=== PATIENT | male | born 1955 | race Caucasian/White ===

== ENCOUNTER 2017-08-01 20:24 | Emergency (ER) | payer BC ==
[2017-08-01] MEDS ORDERED: IOPAMIDOL-300 100 ML VIAL IVP ONE (20:25)
[2017-08-01 20:51] LABS: BASOPHILS % (AUTO) 0.4 %; EOSINOPHILS # (AUTO) 0.1 10^3/uL (0.0-0.7); EOSINOPHILS % (AUTO) 1.4 %; HGB - HEMOGLOBIN 15.2 g/dL (14.0-18.0); LYMPHOCYTES # (AUTO) 2.3 10^3/uL (1.5-3.5); LYMPHOCYTES % (AUTO) 23.4 %; MEAN CORPUSCULAR HEMOGLOBIN 30.7 pg (27.0-31.0); MEAN CORPUSCULAR HGB CONC 32.7 g/dL (32.0-36.0); MEAN CORPUSCULAR VOLUME 93.9 fL (80.0-94.0); MEAN PLATELET VOLUME 8.8 fL (7.4-11.4); MONOCYTES # (AUTO) 0.9 10^3/uL (0.0-1.0); MONOCYTES % (AUTO) 9.5 %; NEUTROPHILS # (AUTO) 6.4 10^3/uL (1.5-6.6); NEUTROPHILS % (AUTO) 65.3 %; PLT - PLATELET COUNT 234 10^3/uL (130-450); RED BLOOD COUNT 4.95 10^6/uL (4.70-6.10); WHITE BLOOD COUNT 9.8 x10^3/uL (4.8-10.8)
[2017-08-01 21:11] LABS: ALBUMIN 4.4 g/dL (3.2-5.5); ALBUMIN/GLOBULIN RATIO 1.4 (1.0-2.2); BILIRUBIN,TOTAL 0.9 mg/dL (0.2-1.0); CALCIUM 9.6 mg/dL (8.5-10.3); CREATININE 0.9 mg/dL (0.6-1.2); TOTAL PROTEIN 7.5 g/dL (6.7-8.2)
--- NOTE | 2017-08-01 21:22 | ED Physician Documentation ---
History of Present Illness - Stated complaint Stated Complaint: SHOULDER/BACK PAIN - Chief complaint Chief Complaint: Cardiac - History obtained from History obtained from: Patient - History of Present Illness Timing: Yesterday Pain level max: 9 Pain level now: 7 Quality: aching, dull - Additonal information Additional information: States R shoulder pain since yesterday. Started when watching TV. States moved to R shoulder to the R lower ribs. States sharp. constant. Better with sitting up or standing. Worse with deep breathing. States 9/10 pain. Review of Systems Ten Systems: 10 systems reviewed and negative Constitutional: denies: Fever, Chills Ears: denies: Ear pain GI: denies: Vomiting, Diarrhea : denies: Dysuria Skin: denies: Rash Musculoskeletal: denies: Neck pain, Back pain PD PAST MEDICAL HISTORY - Past Medical History Past Medical History: Yes Cardiovascular: Hypertension, High cholesterol, Atrial fibrillation - Past Surgical History Past Surgical History: Yes - Present Medications Home Medications: Ambulatory Orders Medication Instructions Recorded Confirmed Hydrocodone/Acetaminophen 1 - 2 each PO Q6H PRN #14 tablet 08/02/17 [Hydrocodon-Acetaminophen 5-325] Rivaroxaban [Xarelto] 15 mg PO BID #42 tablet 08/02/17 - Allergies Allergies/Adverse Reactions: Allergies Allergy/AdvReac Type Severity Reaction Status Date / Time naproxen [From Naprosyn] AdvReac Unknown Verified 08/01/17 21:27 - Social History Does the pt smoke?: No Smoking Status: Never smoker Does the pt drink ETOH?: No Does the pt have substance abuse?: No - Immunizations Immunizations are current?: No PD ED PE NORMAL - Vitals Vital signs reviewed: Yes - General General: Alert and oriented X 3, Other (appears in pain) - HEENT HEENT: Moist mucous membranes - Neck Neck: Supple, no meningeal sign - Cardiac Cardiac: RRR, Strong equal pulses - Respiratory Respiratory: No respiratory distress, Clear bilaterally - Abdomen Abdomen: Soft, Non tender, Non distended - Back Back: No CVA TTP, No spinal TTP - Derm Derm: Warm and dry - Extremities Extremities: No edema, No calf tenderness / cord - Neuro Neuro: Alert and oriented X 3 - Psych Psych: Normal mood, Normal affect Results - Vitals Vitals: Vital Signs - 24 hr 08/01/17 08/01/17 08/01/17 20:28 21:37 22:38 Temperature 36.0 C L Heart Rate 70 80 80 Respiratory 16 16 16 Rate Blood Pressure 165/92 H 172/96 H 125/82 H O2 Saturation 99 95 97 08/02/17 00:46 Temperature Heart Rate 81 Respiratory 16 Rate Blood Pressure 155/97 H O2 Saturation 95 Oxygen O2 Source Room air - EKG (time done) 2038 Rate: Rate (enter#) (67) Rhythm: NSR [place]: Normal Intervals: Normal [place] QRS: Normal Ischemia: Normal ST segments - Labs Labs: Laboratory Tests 08/01/17 08/01/17 08/01/17 20:35 20:35 20:35 WBC 9.8 RBC 4.95 Hgb 15.2 Hct 46.5 MCV 93.9 MCH 30.7 MCHC 32.7 RDW 13.0 Plt Count 234 MPV 8.8 Neut # 6.4 Lymph # 2.3 [place] # 0.9 Eos # 0.1 Baso # 0.0 Absolute Nucleated RBC 0.00 Nucleated RBC % 0.0 Sodium 136 Potassium 4.0 Chloride 101 Carbon Dioxide 28 Anion Gap 7.0 BUN 16 Creatinine 0.9 Estimated GFR (MDRD) 86 L Glucose 84 Calcium 9.6 Total Bilirubin 0.9 AST 22 ALT 20 Alkaline Phosphatase 53 Troponin I < 0.04 Total Protein 7.5 Albumin 4.4 Globulin 3.1 Albumin/Globulin Ratio 1.4 Lipase 26 Urine Color Urine Clarity Urine pH Ur Specific [place] Urine Protein Urine Glucose (UA) Urine Ketones Urine Occult Blood Urine Nitrite Urine Bilirubin Urine Urobilinogen Ur Leukocyte Esterase Ur Microscopic Review Urine Culture Comments 08/01/17 21:35 WBC RBC Hgb Hct MCV MCH MCHC RDW Plt Count MPV Neut # Lymph # [place] # Eos # Baso # Absolute Nucleated RBC Nucleated RBC % Sodium Potassium Chloride Carbon Dioxide Anion Gap BUN Creatinine Estimated GFR (MDRD) Glucose Calcium Total Bilirubin AST ALT Alkaline Phosphatase Troponin I Total Protein Albumin Globulin Albumin/Globulin Ratio Lipase Urine Color YELLOW Urine Clarity CLEAR Urine pH 5.5 Ur Specific [place] <=1.005 Urine Protein NEGATIVE Urine Glucose (UA) NEGATIVE Urine Ketones NEGATIVE Urine Occult Blood NEGATIVE Urine Nitrite NEGATIVE Urine Bilirubin NEGATIVE Urine Urobilinogen 0.2 (NORMAL) Ur Leukocyte Esterase NEGATIVE Ur Microscopic Review NOT INDICATED Urine Culture Comments NOT INDICATED - Rads (name of study) cxr Radiology: Prelim report reviewed, EMP read contemporaneously, See rad report ( normal) CT abd/pelvis Radiology: Prelim report reviewed, EMP read contemporaneously, See rad report ( Ground glass infiltrate in the posterior right lower lobe with trace adjacent effusion, likely the source of right flank/right upper quadrant pain. Differential considerations include infection or infarct. 2. No acute process identified within the abdomen or pelvis. 3. Colonic diverticulosis without CT evidence for acute diverticulitis. ) CTPA Radiology: Prelim report reviewed, EMP read contemporaneously, See rad report ( Subsegmental right middle and lower lobe pulmonary emboli. Right lower lobe opacities likely secondary to atelectasis and small pulmonary infarct.) PD MEDICAL DECISION MAKING - ED course Complexity details: reviewed results, re-evaluated patient, considered differential, d/w patient, d/w family ED course: Patient is a 61-year-old male with a history of paroxysmal atrial fibrillation who presents to the emergency department with right shoulder pain and right side pain since yesterday. He was given pain medication in the emergency department and the pain localized to the right upper quadrant/right flank. Consideration for biliary colic versus ureteral stone versus pulmonary embolism. CT abdomen pelvis did not show any acute abnormalities other than a groundglass infiltrate in the posterior right lower lobe. Therefore a CT pulmonary angiogram was performed which did reveal subsegmental pulmonary emboli in the right middle and lower lobes. No right heart strain. No hypoxia. Pain well controlled. No evidence of hemodynamic instability. PESI score is 72, which places him in category II, low risk. I spent a long time in conversation with the patient and his . We discussed admission for pain control, heparin drip and start anticoagulation, he declines this at this time and given his clinical status, I think this is reasonable. His will be at home with him. We also discussed Lovenox plus warfarin versus Xarelto. He is chosen to go with Xarelto at this time. I also think that this is reasonable and we did discuss the risks and benefits of each including bleeding and reversal. Patient states that he will follow-up with his PCP at [facility] for further care this week. 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 Patient and family counseled regarding signs and symptoms for which I believe and urgent re-evaluation would be necessary. Patient with good understanding of and agreement to plan and is comfortable going home at this time This document was made in part using voice recognition software. While efforts are made to proofread this document, sound alike and grammatical errors may occur. Departure - Departure Disposition: 01 Home, Self Care Clinical Impression: Pulmonary embolism and infarction Condition: Good Instructions: Embolism Pulmonary Dc Follow-Up: DALLIN DOS SANTOS [Physician No Access] - Within 1 week Prescriptions: Hydrocodone/Acetaminophen [Hydrocodon-Acetaminophen 5-325] 1 - 2 each PO Q6H PRN #14 tablet PRN Reason: pain Rivaroxaban [Xarelto] 15 mg PO BID #42 tablet Comments: You have a subsegmental pulmonary embolism on the right side of your lungs. We will start you on Xarelto as we discussed, 15 mg by mouth twice a day for 21 days. After the 21 days your doctor will need to prescribe you 20 mg by mouth daily for the next 6 months. At that point they can reassess you to see if you need to stay on the Xarelto or not. Your doctor will likely want to perform an echocardiogram on you. Return if you worsen. You do need to be seen by your doctor in the next 7 days. Please call his office on Thursday for follow-up. Discharge Date/Time: 08/02/17 00:46
[2017-08-01] MEDS ORDERED: HYDROmorphone 2 MG/ML VIAL IVP STA (21:23)
[2017-08-01] MEDS ORDERED: ONDANSETRON 4 MG/2 ML VIAL IVP STA (21:23)
--- NOTE | 2017-08-01 21:30 | XRAY Preliminary Report ---
Exam: XR CHEST 1 VIEW X-RAY IMPRESSION: Negative chest. [facility] SITE ID: [id number]
--- NOTE | 2017-08-01 21:30 | XRAY Report ---
EXAM: CHEST RADIOGRAPHY EXAM DATE: 08/01/2017 09:24 PM. CLINICAL HISTORY: Chest pain. COMPARISON: None. TECHNIQUE: 1 view. FINDINGS: Lungs/Pleura: No focal opacities evident. No pleural effusion. No pneumothorax. Mediastinum: Heart size is normal. Very mild aortic arch atherosclerotic calcification. Other: None. IMPRESSION: Negative chest. [facility] Referring Provider Line: [phone] SITE ID: [id number]
[2017-08-01] MEDS ORDERED: ONDANSETRON 4 MG/2 ML VIAL ONE (21:36)
[2017-08-01 21:39] LABS: BILIRUBIN,URINE NEGATIVE (NEGATIVE); GLUCOSE, URINE (UA) NEGATIVE (NEGATIVE); KETONES,URINE (UA) NEGATIVE (NEGATIVE); LEUKOCYTE ESTERASE, URINE NEGATIVE (NEGATIVE); NITRITE,URINE NEGATIVE (NEGATIVE); OCCULT BLOOD,URINE NEGATIVE (NEGATIVE); PH,URINE 5.5 PH (5.0-7.5); PROTEIN,URINE NEGATIVE (NEGATIVE); UROBILINOGEN,URINE 0.2 (NORMAL) E.U./dL (NORMAL)
[2017-08-01 21:40] LABS: CLARITY,URINE CLEAR (CLEAR)
[2017-08-01] MEDS ORDERED: IOPAMIDOL-300 100 ML VIAL ONE ×2 (22:23→23:24)
[2017-08-01] MEDS: IOPAMIDOL-300 100 ML VIAL IVP ONE ×3 (22:32→23:46)
--- NOTE | 2017-08-01 23:03 | CT Report ---
EXAM: CT ABDOMEN AND PELVIS EXAM DATE: 08/01/2017 10:40 PM. CLINICAL HISTORY: Right flank and right upper quadrant pain COMPARISONS: None. TECHNIQUE: Routine helical CT imaging was performed through the abdomen and pelvis. IV contrast: 100M L ISOVUE 300. Enteric contrast: No. Reconstructions: Coronal and sagittal. In accordance with CT protocol optimization, one or more of the following dose reduction techniques w ere utilized for this exam: automated exposure control, adjustment of mA and/or KV based on patient s ize, or use of iterative reconstructive technique. FINDINGS: Lung Bases: Groundglass infiltrate in the posterior right lower lobe with trace adjacent effusion. Liver: Normal. No focal hepatic lesion. Gallbladder/Bile Ducts: Unremarkable. No visualized stones or biliary ductal dilatation. Spleen: Normal. Pancreas: Normal. Adrenal Glands: Normal. Kidneys and Ureters: Normal. No stones, hydronephrosis, or hydroureter. Peritoneal Cavity/Bowel: Colonic diverticulosis. No evidence for bowel obstruction or acute inflammat ory process. The appendix is normal. No free fluid, pneumoperitoneum, or adenopathy. Pelvic Organs: Tiny dystrophic calcifications within the prostate gland. The bladder and visualized p elvic organs are otherwise within normal limits. Vasculature: Mild to moderate atherosclerotic calcifications within the aorta and iliac arteries. No aneurysm or other significant abnormality. Bones: Chronic bilateral L5 pars defects with associated severe disk degeneration and grade 1 anterol isthesis at L5-S1 mild right convex curvature centered at L4-L5. Variant anatomy of the bilateral pro ximal femurs with diminished cutback along the lateral femoral head/neck junctions, which can be asso ciated with cam-type femoral acetabular impingement. Mild osteoarthritis at the hips. Other: None. IMPRESSION: 1. Ground glass infiltrate in the posterior right lower lobe with trace adjacent effusion, likely the source of right flank/right upper quadrant pain. Differential considerations include infection or in farct. 2. No acute process identified within the abdomen or pelvis. 3. Colonic diverticulosis without CT evidence for acute diverticulitis. [facility] Referring Provider Line: [phone] SITE ID: [id number]
[2017-08-01] MEDS ORDERED: SODIUM CHLORIDE 0.9% 1,000 ML IV ONE (23:04)
--- NOTE | 2017-08-02 00:09 | CT Preliminary Report ---
Exam: CT CHEST ANGIO (PE) IMPRESSION: 1. Subsegmental right middle and lower lobe pulmonary emboli. 2. Right lower lobe opacities likely secondary to atelectasis and small pulmonary infarct. [facility] The above findings were discussed with Johnson De La Cruz by Dr. Dami Stallings at 00:08 hrs on 07/08 09/23. SITE ID: [id number]
[2017-08-02] MEDS ORDERED: RIVAROXABAN 15 MG TABLET PO STA (00:26)
[2017-08-02] MEDS ORDERED: HYDROcod/ACETAM 5/325 MG TABLET PO STA (00:26)
[2017-08-02 00:47] VITALS: BP 155/97
--- NOTE | 2017-08-02 00:58 | CT Report ---
EXAM: CT ANGIOGRAM CHEST EXAM DATE: 08/01/2017 11:50 PM. CLINICAL HISTORY: Right lower lobe infarct versus infection. COMPARISON: 08/01/[address] TECHNIQUE: Routine helical imaging was performed through the chest in the pulmonary arterial phase. I V Contrast: 80ML ISOVUE 300. Reconstructions: Coronal 3-D MIP reconstructions.Sagittal and coronal. In accordance with CT protocol optimization, one or more of the following dose reduction techniques w ere utilized for this exam: automated exposure control, adjustment of mA and/or KV based on patient s ize, or use of iterative reconstructive technique. FINDINGS: Pulmonary Arteries: Diagnostic quality: Adequate through the segmental arteries. There are filling defects within subsegm ental pulmonary artery branches of the right lower lobe. There is a small embolism in one of the righ t middle lobe segmental branches. No left lung or central emboli seen. RV/LV is within normal limits. There is no interventricular septal bowing. There is no reflux of cont rast material in the IVC. Lungs/Pleura: There are bilateral lower lobe hypoventilatory changes. Areas of dense consolidation at the right lung base may represent pulmonary infarct. No pneumothorax. Mediastinum: Normal. No cardiac enlargement or adenopathy. Thoracic Aorta: Unremarkable. Upper Abdomen: Unremarkable. Other: None. IMPRESSION: 1. Subsegmental right middle and lower lobe pulmonary emboli. 2. Right lower lobe opacities likely secondary to atelectasis and small pulmonary infarct. [facility] The above findings were discussed with Johnson De La Cruz by Dr. Dami Stallings at 00:08 hrs on 07/08 09/23. Referring Provider Line: [phone] SITE ID: [id number]
== END 2017-08-02 00:46 | disposition home or self-care (01) ==
LOC: ED 20:24
DX: I26.99 Other pulmonary embolism without acute cor pulmonale (principal); I10 Essential (primary) hypertension; E78.00 Pure hypercholesterolemia, unspecified
CPT/HCPCS: 36415; 71045; 71275; 74177; 80053; 81003; 83690; 84484; 85025; 93005; 96374; 99284; A9270; J1170; Q9967; 81001; 87086